=== PATIENT | male | born 1970 | race African-American/Black ===

== ENCOUNTER 2021-09-15 11:13 | Outpatient (CLI) | payer MEDICARE ==
[2021-09-15 21:27] LABS: SARS-CoV-2 PCR by NAA Not Detected (NotDetected)
== END 2021-09-15 11:14 | disposition home or self-care (01) ==
LOC: CSHLAB 11:13
PROVIDERS: ATTEND Orthopaedic Surgery Orthopaedic Surgery of the Spine
DX: Z20.822 Contact with and (suspected) exposure to COVID-19 (principal); Z86.16 Personal history of COVID-19
CPT/HCPCS: U0003; U0005

== ENCOUNTER 2021-09-19 15:47 | Outpatient (CLI) | payer MEDICARE | END 2021-09-19 15:48 | disposition home or self-care (01) | LOC: CSHCP 15:47 | PROVIDERS: ATTEND Orthopaedic Surgery Orthopaedic Surgery of the Spine | DX: Z86.16 Personal history of COVID-19 (principal) | CPT/HCPCS: 94060; 94760 ==